=== PATIENT | male | born 1985 | race African-American/Black ===

== ENCOUNTER 2016-11-28 22:03 | Inpatient (IN) | payer OTHER ==
--- NOTE | ~2016-11-28 | DS ---
Discharge Summary [facility] [address] [place]. [address] NAME: TORITO HATCH) : 83 STATUS : DIS IN PAT#: [id number] AGE: 31 ADM/REG DATE : 11/28/16 MR#: [id number] REPORT SERV DATE: 12/13/16 DICTATED BY: DRAKE PEDRO JR. DATE: 12/12/16 REPORT STATUS : Draft TRANSCRIBED BY: FAIZA DATE: 12/12/16 Data Collection from hospitalization DISCHARGE DIAGNOSES: 1. Right pneumonia with empyema. 2. History of closed fracture of fifth metacarpal. 3. Tobacco use. CONSULTATIONS: None. PROCEDURES PERFORMED: 1. Therapeutic bronchoscopy, right thoracoscopy with complete decortication, and intercostal nerve block on 11/30/2016. 2. CT scan of the chest without contrast on 11/28/2016. MEDICATIONS: Levaquin 750 mg daily, Percocet 5/325 one to two tablets every four hours as needed, and MiraLAX powder one packet daily. CONDITION AT DISCHARGE: Stable. DISPOSITION: The patient was discharged home on a regular diet with activities as instructed. He would follow up with me three to four weeks following discharge. HOSPITAL COURSE: This is a 31-year-old man who had a nonproductive cough, shortness of breath, fevers, chills, and right pleuritic pain over the past four to five days as well as increasingly getting worse. He said the pain was constant and did not improve with over-the counter medication. He eventually presented to the emergency room at [facility] on 11/27/2016. Further workup revealed right pneumonia with pleural effusion and elevated white blood cell count. Blood cultures were positive for Strep pneumoniae. He was started on antibiotics and had a CT scan of the chest obtained, which showed moderate-sized loculated right effusion with right posterior basilar pneumonia and elevation of the right diaphragm. Because of this, we were asked to transfer him here for consideration of surgical decortication. He was transferred here and admitted for further evaluation and treatment. Upon admission, his white blood cell count was 11.8. He had been started on Levaquin and Zosyn. He was being held n.p.o. A CT scan of the chest without contrast was performed. On 11/30/2016, urine output was adequate. O2 saturation was 95% on room air. He was taken to the operating room where he underwent the above-mentioned procedure. He tolerated this well, and there were no complications. On postop day #1, he had decreased breath sounds in his lung bases, right greater than left. His abdomen remained soft, nontender, and nondistended. We encouraged him to increase his activity. Discharge planning was performed. On 12/02/2016, O2 saturation was 97% on room air. His chest tube was removed. Surgical cultures and blood cultures were negative to date. Discharge instructions were given. Due to his improved and stable condition, he was discharged home with the above- stated instructions. Information collected by: Delmi Paul Discharge Summary [address] [address] NAME: TORITO HATCHMaliaHUSSEIN) : 83 STATUS : DIS IN [facility]#: [id number] AGE: 31 ADM/REG DATE : 11/28/16 MR#: [id number] REPORT SERV DATE: 12/13/16 DICTATED BY: DRAKE PEDRO JR. DATE: 12/12/16 REPORT STATUS : Draft TRANSCRIBED BY: FAIZA DATE: 12/12/16 I submit the above information as my discharge summary. GABE/FAIZA Drake Pedro Jr., M.D. / [id number] CC: Drake Pedro Jr., M.D.
--- NOTE | ~2016-11-28 | HP ---
History And Physical [place] [id number] [facility] [place]. [address] NAME: TORITO HATCH) : [birth year] STATUS : ADM IN [facility]#: [id number] AGE: 31 ADM/REG DATE : 11/28/16 MR#: [id number] REPORT SERV DATE: 11/29/16 DICTATED BY: THOR LOZOYA DATE: 11/29/16 REPORT STATUS : Draft TRANSCRIBED BY: MODNeelima DATE: 11/29/16 DATE OF ADMISSION: 11/28/2016 REASON FOR ADMISSION: Right pneumonia with empyema. BRIEF HISTORY: A 31-year-old white male, who had a nonproductive cough, shortness of breath, fever, chills, and right pleuritic pain for the last 4-5 days and increasingly getting worse. He states the pain was constant and did not improve with [id number] medications. He eventually presented to the emergency room at [facility] on 11/27/2016 and upon further workup, was noted to have right pneumonia with pleural effusion and elevated white blood count. Blood cultures were also positive for strep pneumoniae. He was started on antibiotics and a CT of the chest was obtained, which showed a moderate size loculated right effusion with right posterior basilar pneumonia and elevation of the right hemidiaphragm. Because of this, we were asked to transfer him for consideration for a surgical decortication. PAST MEDICAL HISTORY: Significant for closed fracture of his 5th metacarpal. PAST SURGICAL HISTORY: Includes pins in his hips as a child in 1993. HOME MEDICATIONS: None. ALLERGIES: TO MEDICATIONS, NONE. SOCIAL HISTORY: The patient smokes roughly one pack per week and has done so since age 23. Denies alcohol use or drug use of any kind. He is single and lives with his children and works in [employer]. He lives in [place], [place]. FAMILY HISTORY: Positive for his mother having diabetes and his father dying at age 56 of liver disease. His siblings are healthy with no significant medical problems. REVIEW OF SYSTEMS: Significant for shortness of breath, fever, chills, pleuritic pain in the right chest. Otherwise, a complete 12-point review of systems was performed and all other systems negative except for the above-mentioned pertinent positives in the history of present illness. PHYSICAL EXAMINATION: GENERAL: A 31-year-old white male, alert, in no acute distress. Appearing his stated age. CONSTITUTIONAL: Afebrile, heart rate 75, 100% sat on room air, blood pressure 130/72. HEAD, EARS, EYES, NOSE, AND THROAT: Normocephalic, atraumatic. Pupils equal, round and reactive to light. Ears, nose, and throat without drainage, lesions, or exudates noted. NECK: Supple. No lymphadenopathy, JVD, or bruits. Trachea midline with no obvious goiter. CHEST: Symmetrical bilateral movement. No chest wall deformities noted. No axillary lymphadenopathy noted. CARDIOVASCULAR: Exam reveals regular rate and rhythm. S1, S2. No gallop, murmur, or rub. History And Physical [address] [place]. [address] NAME: TORITO HATCH(HUSSEIN) : 83 STATUS : ADM IN [facility]#: [id number] AGE: 31 ADM/REG DATE : 11/28/16 MR#: [id number] REPORT SERV DATE: 11/29/16 DICTATED BY: THOR LOZOYA DATE: 11/29/16 REPORT STATUS : Draft TRANSCRIBED BY: FAIZA DATE: 11/29/16 RESPIRATORY: With decreased breath sounds on the right chest. Left clear. No use of accessory muscles noted. GASTROINTESTINAL: Abdomen is soft, nontender, nondistended. Positive bowel sounds in all 4 quadrants. No hepatosplenomegaly noted. : The patient voids without difficulty, otherwise deferred. MUSCULOSKELETAL: Without obvious kyphosis or scoliosis noted. Normal range of motion in all 4 extremities. No obvious bony abnormalities. NEURO: All 12 cranial nerves intact. No focal neurologic deficits noted. The patient is alert and oriented x3. SKIN: Warm and dry with no breakdown or lesions, and normal turgor. EXTREMITIES: Without clubbing, cyanosis, or edema, and 3+ pulses bilaterally. PSYCH: Normal mood and affect, and pleasant. Answers all questions appropriately. HEMATOLOGIC/LYMPHATIC: Without any obvious supraclavicular, cervical, or axillary lymphadenopathy. There is no petechiae or ecchymosis either. DATA: CT of the chest performed on 11/28/2016 showing right loculated effusion moderate in size, flaring up to the lateral wall of the right chest. There is a consolidation of the posterior basilar segment the right lower lobe, consistent with pneumonia. There is also elevation of the right hemidiaphragm. Blood cultures x2 dated 11/27/2016, 2/2 positive for strep pneumonia. LABORATORY DATA: Dated 11/29/2016: Sodium 143, potassium 3.3, chloride 110, BUN 6, creatinine 0.93, glucose 104. White blood count 11.8, hemoglobin 12.1, hematocrit 35.0, platelet 206. PROBLEM LIST: 1. Loculated right pleural effusion, parapneumonic in nature. 2. Right lower lobe pneumonia, strep pneumoniae positive. 3. Bacteremia. 4. Elevated right hemidiaphragm. 5. Tobacco abuse. 6. Closed fracture of 5th metacarpal. 7. Hypokalemia. IMPRESSION AND PLAN: A 31-year-old white male with recent pneumonia and progressive symptoms prompting evaluation in the emergency room. He was noted to have consolidation in the right posterior lower lobe consistent with pneumonia and a loculated right effusion which is moderate in size. Blood cultures were positive for strep pneumoniae. He has been placed on Levaquin as well as Zosyn. He is afebrile currently, and his white blood count is mildly elevated. I discussed with him and his family the loculated nature of the pleural fluid and the need for decortication. He is currently n.p.o. They understand the risks and benefits of surgery, and are willing to proceed if felt necessary. We will plan to proceed later on this afternoon if at all possible. If it becomes unreasonably late, then we would let him eat and presume with surgery possibly tomorrow. History And Physical [address] [address] NAME: TORITO HATCH(HUSSEIN) : 83 STATUS : ADM IN PAT#: [id number] AGE: 31 ADM/REG DATE : 11/28/16 MR#: [id number] REPORT SERV DATE: 11/29/16 DICTATED BY: THOR LOZOYA DATE: 11/29/16 REPORT STATUS : Draft TRANSCRIBED BY: FAIZA DATE: 11/29/16 PABLO/FAIZA Thor Lozoya NP / [id number] CC: Jaspal Pedro Jr., M.D.
--- NOTE | ~2016-11-28 | OP ---
Record Of Operation [facility] [address] [place]. [address] NAME: TORITO HATCH) : [birth year] STATUS : ADM IN [facility]#: [id number] AGE: 31 ADM/REG DATE : 11/28/16 MR#: [id number] REPORT SERV DATE: 12/01/16 DICTATED BY: DRAKE PEDRO JR. DATE: 11/30/16 REPORT STATUS : Draft TRANSCRIBED BY: MODNeelima DATE: 11/30/16 DATE OF PROCEDURE: 11/30/2016 PREOPERATIVE DIAGNOSIS: Right pneumonia with empyema. POSTOPERATIVE DIAGNOSIS: Right pneumonia with empyema. OPERATION: Therapeutic bronchoscopy, right thoracoscopy with complete decortication, intercostal nerve block. SURGEON: Drake Pedro M.D. DRY PLACER MACHINE OPERATOR: Harry King. RESIDENT SURGEON: Dilshad Marroquin MD ANESTHESIA: General endotracheal. FINDINGS: The patient noted to have a loculated parapneumonic effusion with previous culture suggesting a strep infection. We were able get all the fluid removed and the gelatinous material and loculations broken up. The lung was able to be fully decorticated. There was good reexpansion of all three lobes of the lung. Final cultures are pending. DETAILS OF OPERATION: After adequate general anesthesia, the patient was intubated. Bronchoscopy was performed noting significant endobronchial secretions. These secretions were removed. We were able to then get a left-sided double-lumen endotracheal tube in place. There was no contraindications proceeding on with surgery. The patient was then positioned in the left lateral decubitus position. The right chest was prepped and draped in routine sterile fashion. A small incision made overlying the lower intercostal space. Through a single incision site, the above finding was noted. The fluid and gelatinous debris were then removed with the suction devices. The fluid was sent for cultures. A complete decortication was then required. We were able to get the fissures and all of the fluid and loculations broken up. The peel on the entire right lung was removed. Then chest was thoroughly irrigated with multiple liters of sterile water. Intercostal nerve block was performed. A 32-Com[place] chest tube was placed. The lung was then reinflated. The single trocar incision was closed with running Vicryl sutures. The skin was closed with running monofilament suture. A Dermabond dressing was applied. The procedure was terminated at this point. The patient tolerated the procedure well, returned back to recovery room in stable condition. WES/FAIZA Drake Pedro Jr., M.D. Record Of Operation [address] [address] NAME: TORITO HATCH(HUSSEIN) : 83 STATUS : ADM IN PAT#: [id number] AGE: 31 ADM/REG DATE : 11/28/16 MR#: [id number] REPORT SERV DATE: 12/01/16 DICTATED BY: DRAKE PEDRO JR. DATE: 11/30/16 REPORT STATUS : Draft TRANSCRIBED BY: FAIZA DATE: 11/30/16 / [id number] CC: Enriqueta Lopez Jr., M.D.
--- NOTE | ~2016-11-28 | DS ---
Discharge Summary [place] [address] [place]. [address] NAME: TORITO HATCH) : 83 STATUS : DIS IN PAT#: [id number] AGE: 31 ADM/REG DATE : 11/28/16 MR#: [id number] REPORT SERV DATE: 12/12/16 DICTATED BY: DRAKE PEDRO JR. DATE: 12/11/16 REPORT STATUS : Draft TRANSCRIBED BY: FAIZA DATE: 12/11/16 Data Collection from hospitalization DISCHARGE DIAGNOSES: 1. Right pneumonia with empyema. 2. History of closed fracture of fifth metacarpal. 3. Rare tobacco. CONSULTATIONS: None. PROCEDURES PERFORMED: 1. Therapeutic bronchoscopy, right thoracoscopy with complete decortication and intercostal nerve block, 11/30/2016. 2. CT scan of the chest without contrast, 11/28/2016. DISCHARGE MEDICATIONS: Levaquin 750 mg daily, Percocet 5/325 one to two tablets every four hours as needed, MiraLAX powder one packet daily. CONDITION AT DISCHARGE: Stable. DISPOSITION: The patient was discharged home on a regular diet with activities as instructed. He would follow up with me three to four weeks following discharge. HOSPITAL COURSE: DICTATION ENDS HERE Information collected by: Delmi Paul I submit the above information as my discharge summary. GABE/FAIZA Drake Pedro Jr., M.D. / [id number] CC: Drake Pedro Jr., M.D.
[2016-11-29 01:01] LABS: HEMOGLOBIN 12.1 g/dL (13.6-17.8); MEAN CORPUS HGB CONC 34.6 g/dL (32.0-36.0); MEAN CORPUSCULAR HEMOGLOB 27.3 pg (26.0-34.0); MEAN CORPUSCULAR VOLUME 78.8 fL (80-100); MEAN PLATELET VOLUME 11.1 fL (9.2-13.0); PLATELET COUNT 206 10/3/uL (150-400); RBC DISTRIBUTION WIDTH 14.9 % (12.0-16.0); RED CELL COUNT 4.44 10/6/uL (4.7-6.1); WHITE BLOOD CELLS 11.8 10/3/uL (4.5-10.5)
[2016-11-29 01:07] LABS: BUN (BLOOD UREA NITROGEN) 8 MG/DL (6-23); CHLORIDE, SERUM 107 MMOL/L (96-112); CO2 (CARBON DIOXIDE) 25 MMOL/L (24-34); CREATININE 1.11 MG/DL (0.70-1.30); GFR AFRICAN AMERICAN 101 ML/MIN (>=60); GFR NON AFRICAN AMERICAN 87 ML/MIN (>=60); GLUCOSE, SERUM 106 MG/DL (60-99); SODIUM, SERUM 142 MMOL/L (135-148)
[2016-11-29 01:09] LABS: MANUAL DIFF YES %
[2016-11-29 01:11] LABS: POTASSIUM, SERUM 2.9 MMOL/L (3.5-5.3)
[2016-11-29 01:16] LABS: BAND NEUTROPHILS 7 %; EOSINOPHILS 2 %; EOSINOPHILS ABSOLUTE (CALC) 0.24 10/3/uL (0.0-0.53); IMMATURE GRANS ABSOLUTE (CALC) 0.59 10/3/uL (0.0-0.11); LYMPHOCYTES 16 %; LYMPHOCYTES ABSOLUTE (CALC) 1.89 10/3/uL (0.67-4.30); METAMYELOCYTES 3 %; MONOCYTES 10 %; MONOCYTES ABSOLUTE (CALC) 1.18 10/3/uL (0.21-1.20); MYELOCYTES 2 %; NEUTROPHILS ABSOLUTE (CALC) 7.91 10/3/uL (2.02-8.40); SEGMENTED NEUTROPHIL (0) 60 %; TOTAL NUCLEATED CELLS 100
[2016-11-29 01:17] LABS: BURR CELLS 1+ (3-10/OIF) (0-2/OIF); GIANT PLATELET RARE; PLATELET ESTIMATE ADQ (ADEQUATE)
[2016-11-29 01:18] LABS: VACUOLATED NEUTROPHILES OCC
[2016-11-29 05:32] LABS: BUN (BLOOD UREA NITROGEN) 6 MG/DL (6-23); CALCIUM, SERUM 8.2 MG/DL (8.5-10.4); CHLORIDE, SERUM 110 MMOL/L (96-112); CO2 (CARBON DIOXIDE) 23 MMOL/L (24-34); CREATININE 0.93 MG/DL (0.70-1.30); GFR AFRICAN AMERICAN 125 ML/MIN (>=60); GFR NON AFRICAN AMERICAN 108 ML/MIN (>=60); GLUCOSE, SERUM 104 MG/DL (60-99); POTASSIUM, SERUM 3.3 MMOL/L (3.5-5.3); SODIUM, SERUM 143 MMOL/L (135-148)
[2016-11-30 05:59] LABS: ASCORBIC ACID (UR NOT ORDER) NEG (NEG); BILIRUBIN, URINE NEGATIVE (NEG); KETONE, URINE NEGATIVE (NEG); LEUKOCYTE ESTERASE(NOT OR NEG (NEG); WBC (NOT ORDERED) (RFLEX) 3 (0-5)
[2016-11-30 06:24] LABS: HEMATOCRIT 37.2 % (40.0-51.0); HEMOGLOBIN 12.8 g/dL (13.6-17.8); MEAN CORPUS HGB CONC 34.4 g/dL (32.0-36.0); MEAN CORPUSCULAR HEMOGLOB 27.1 pg (26.0-34.0); MEAN CORPUSCULAR VOLUME 78.8 fL (80-100); MEAN PLATELET VOLUME 9.8 fL (9.2-13.0); RBC DISTRIBUTION WIDTH 14.8 % (12.0-16.0); RED CELL COUNT 4.72 10/6/uL (4.7-6.1); WHITE BLOOD CELLS 11.4 10/3/uL (4.5-10.5)
[2016-11-30 06:28] LABS: MANUAL DIFF YES %; PLATELET COUNT 284 10/3/uL (150-400)
[2016-11-30 06:34] LABS: INTERNATIONAL NORMAL RATI 1.2 UNITS (-); PROTIME (NOT ORD) 15.4 SEC (12.0-14.5)
[2016-11-30 06:47] LABS: A/G RATIO 0.4 (0.7-1.9); ALBUMIN 2.1 G/DL (3.5-5.0); ALKALINE PHOSPHATASE 116 U/L (45-117); BUN (BLOOD UREA NITROGEN) 7 MG/DL (6-23); CALCIUM, SERUM 8.3 MG/DL (8.5-10.4); CHLORIDE, SERUM 108 MMOL/L (96-112); CO2 (CARBON DIOXIDE) 24 MMOL/L (24-34); CREATININE 0.88 MG/DL (0.70-1.30); GFR AFRICAN AMERICAN 132 ML/MIN (>=60); GFR NON AFRICAN AMERICAN 114 ML/MIN (>=60); GLUCOSE, SERUM 92 MG/DL (60-99); POTASSIUM, SERUM 3.7 MMOL/L (3.5-5.3); SGOT(AST) 37 U/L (5-40); SGPT(ALT) 52 U/L (5-65); SODIUM, SERUM 142 MMOL/L (135-148); TOTAL BILIRUBIN 0.4 MG/DL (0-1.2); TOTAL PROTEIN 7.1 G/DL (6.0-8.5)
[2016-11-30 07:10] LABS: BAND NEUTROPHILS 4 %; EOSINOPHILS 5 %; EOSINOPHILS ABSOLUTE (CALC) 0.57 10/3/uL (0.0-0.53); LYMPHOCYTES 7 %; MONOCYTES 14 %; NEUTROPHILS ABSOLUTE (CALC) 8.44 10/3/uL (2.02-8.40); PLATELET ESTIMATE ADQ (ADEQUATE); RBC MORPHOLOGY NORM (NORMAL); SEGMENTED NEUTROPHIL (0) 70 %; TOTAL NUCLEATED CELLS 100
[2016-11-30 19:26] LABS: BASOPHILS 0.7 %; EOSINOPHILS 1.1 %; EOSINOPHILS ABSOLUTE 0.16 10/3/uL (0.0-0.53); HEMATOCRIT 40.5 % (40.0-51.0); HEMOGLOBIN 13.6 g/dL (13.6-17.8); IMMATURE GRANULOCYTES 7.9 %; IMMATURE GRANULOCYTES ABSOLUTE 1.19 10/3/uL (0.0-0.11); LYMPHOCYTES 9.6 %; LYMPHOCYTES ABSOLUTE 1.44 10/3/uL (0.67-4.30); MEAN CORPUS HGB CONC 33.6 g/dL (32.0-36.0); MEAN CORPUSCULAR HEMOGLOB 26.8 pg (26.0-34.0); MEAN CORPUSCULAR VOLUME 79.9 fL (80-100); MEAN PLATELET VOLUME 10.1 fL (9.2-13.0); MONOCYTES 5.3 %; MONOCYTES ABSOLUTE 0.79 10/3/uL (0.21-1.20); NEUTROPHILS 75.4 %; NEUTROPHILS ABSOLUTE 11.35 10/3/uL (2.02-8.40); PLATELET COUNT 291 10/3/uL (150-400); RED CELL COUNT 5.07 10/6/uL (4.7-6.1)
[2016-11-30 19:27] LABS: MANUAL DIFF NO %
[2016-11-30 19:41] LABS: BUN (BLOOD UREA NITROGEN) 8 MG/DL (6-23); CALCIUM, SERUM 8.3 MG/DL (8.5-10.4); CHLORIDE, SERUM 106 MMOL/L (96-112); CO2 (CARBON DIOXIDE) 26 MMOL/L (24-34); CREATININE 1.07 MG/DL (0.70-1.30); GFR AFRICAN AMERICAN 106 ML/MIN (>=60); GFR NON AFRICAN AMERICAN 91 ML/MIN (>=60); GLUCOSE, SERUM 87 MG/DL (60-99); POTASSIUM, SERUM 4.4 MMOL/L (3.5-5.3); SODIUM, SERUM 140 MMOL/L (135-148)
[2016-11-30 19:52] LABS: BAND NEUTROPHILS 7 %; EOSINOPHILS 1 %; EOSINOPHILS ABSOLUTE (CALC) 0.15 10/3/uL (0.0-0.53); LYMPHOCYTES 12 %; METAMYELOCYTES 2 %; NEUTROPHILS ABSOLUTE (CALC) 12.75 10/3/uL (2.02-8.40); SEGMENTED NEUTROPHIL (0) 78 %; TOTAL NUCLEATED CELLS 100
[2016-11-30 19:53] LABS: PATH REVIEW YES; PLATELET ESTIMATE ADQ (ADEQUATE)
[2016-12-01 06:15] LABS: HEMATOCRIT 39.4 % (40.0-51.0); HEMOGLOBIN 13.2 g/dL (13.6-17.8); MEAN CORPUS HGB CONC 33.5 g/dL (32.0-36.0); MEAN CORPUSCULAR HEMOGLOB 26.5 pg (26.0-34.0); MEAN CORPUSCULAR VOLUME 79.1 fL (80-100); MEAN PLATELET VOLUME 10.3 fL (9.2-13.0); PLATELET COUNT 361 10/3/uL (150-400); RBC DISTRIBUTION WIDTH 15.1 % (12.0-16.0); RED CELL COUNT 4.98 10/6/uL (4.7-6.1)
[2016-12-01 06:21] LABS: MANUAL DIFF YES %; WHITE BLOOD CELLS 23.7 10/3/uL (4.5-10.5)
[2016-12-01 06:27] LABS: BUN (BLOOD UREA NITROGEN) 10 MG/DL (6-23); CALCIUM, SERUM 8.2 MG/DL (8.5-10.4); CHLORIDE, SERUM 105 MMOL/L (96-112); CO2 (CARBON DIOXIDE) 25 MMOL/L (24-34); CREATININE 0.95 MG/DL (0.70-1.30); GFR AFRICAN AMERICAN 122 ML/MIN (>=60); GFR NON AFRICAN AMERICAN 105 ML/MIN (>=60); GLUCOSE, SERUM 154 MG/DL (60-99); POTASSIUM, SERUM 4.4 MMOL/L (3.5-5.3); SODIUM, SERUM 138 MMOL/L (135-148)
[2016-12-01 06:38] LABS: BAND NEUTROPHILS 14 %; IMMATURE GRANS ABSOLUTE (CALC) 0.47 10/3/uL (0.0-0.11); LYMPHOCYTES 4 %; LYMPHOCYTES ABSOLUTE (CALC) 0.95 10/3/uL (0.67-4.30); METAMYELOCYTES 2 %; MONOCYTES 3 %; MONOCYTES ABSOLUTE (CALC) 0.71 10/3/uL (0.21-1.20); NEUTROPHILS ABSOLUTE (CALC) 21.57 10/3/uL (2.02-8.40); PLATELET ESTIMATE ADQ (ADEQUATE); SEGMENTED NEUTROPHIL (0) 77 %; TOTAL NUCLEATED CELLS 100
[2016-12-01 06:39] LABS: POLYCHROMASIA 1+ (2-5/OIF) (0-1/OIF); TOXIC GRANULATION 1+; VACUOLATED NEUTROPHILES OCC
[2016-12-02] MEDS ORDERED: MIRALAX POWDER1 PKT PO (10:00)
[2016-12-02] MEDS ORDERED: LEVAQUIN750 MG PO (10:00)
[2016-12-02] MEDS ORDERED: PCET PO (10:01)
== END 2016-12-02 10:50 | disposition home or self-care (01) | DRG 163 ==
LOC: 5NO 22:03
PROVIDERS: Nurse Practitioner Acute Care; Thoracic Surgery (Cardiothoracic Vascular Surgery)
PROC: 3E0T3BZ Introduction of Anesthetic Agent into Peripheral Nerves and Plexi, Percutaneous Approach (ICD-10-PCS; 2016-11-30)
PROC: 0BDN4ZZ Extraction of Right Pleura, Percutaneous Endoscopic Approach (ICD-10-PCS; principal; 2016-11-30 16:45)
PROC: 0BJ08ZZ Inspection of Tracheobronchial Tree, Via Natural or Artificial Opening Endoscopic (ICD-10-PCS; 2016-11-30 16:45)
DX: J15.4 Pneumonia due to other streptococci (principal); J86.9 Pyothorax without fistula; J90 Pleural effusion, not elsewhere classified; F17.210 Nicotine dependence, cigarettes, uncomplicated; E87.6 Hypokalemia
CPT/HCPCS: 36415; 71010; 71020; 71250; 80048; 80053; 81001; 82962; 85025; 85610; 86850; 86900; 86901; 86920; 87015; 87040; 87070; 87075; 87102; 87116; 87205; 93005; 94640; A9270-GY; J1170; J1956; J2250; J2370; J2405; J2543; J2710; J2795; J3010

== ENCOUNTER 2017-02-05 10:13 | Emergency (ER) | payer OTHER ==
[2017-02-05 10:08] LABS: BASOPHILS 0 %; EOSINOPHILS 0.3 %; EOSINOPHILS ABSOLUTE 0.02 10/3/uL (0.0-0.53); IMMATURE GRANULOCYTES 0.3 %; IMMATURE GRANULOCYTES ABSOLUTE 0.02 10/3/uL (0.0-0.11); LYMPHOCYTES 10.3 %; LYMPHOCYTES ABSOLUTE 0.76 10/3/uL (0.67-4.30); MEAN CORPUS HGB CONC 32.7 g/dL (32.0-36.0); MEAN CORPUSCULAR HEMOGLOB 27.1 pg (26.0-34.0); MONOCYTES ABSOLUTE 0.37 10/3/uL (0.21-1.20); NEUTROPHILS 84.1 %; NEUTROPHILS ABSOLUTE 6.18 10/3/uL (2.02-8.40); RBC DISTRIBUTION WIDTH 16.7 % (12.0-16.0); RED CELL COUNT 5.54 10/6/uL (4.7-6.1)
[2017-02-05 10:10] LABS: ER CBC TAT 0 Hrs 08 MinsNP; HEMATOCRIT 45.9 % (40.0-51.0); MANUAL DIFF NO %; MEAN CORPUSCULAR VOLUME 82.9 fL (80-100); PLATELET COUNT 127 10/3/uL (150-400); WHITE BLOOD CELLS 7.4 10/3/uL (4.5-10.5)
[~2017-02-05 10:13] MED LIST: LEVAQUIN750 MG PO; MIRALAX POWDER1 PKT PO; PCET PO
[2017-02-05 12:38] LABS: BUN (BLOOD UREA NITROGEN) 13 MG/DL (6-23); CHLORIDE, SERUM 106 MMOL/L (96-112); CO2 (CARBON DIOXIDE) 25 MMOL/L (24-34); CREATININE 1.03 MG/DL (0.70-1.30); GFR AFRICAN AMERICAN 111 ML/MIN (>=60); GFR NON AFRICAN AMERICAN 96 ML/MIN (>=60); POTASSIUM, SERUM 3.9 MMOL/L (3.5-5.3); SGOT(AST) 22 U/L (5-40); SGPT(ALT) 19 U/L (5-65); SODIUM, SERUM 137 MMOL/L (135-148); TOTAL BILIRUBIN 0.5 MG/DL (0-1.2); TOTAL PROTEIN 7.6 G/DL (6.0-8.5)
[2017-02-05 12:39] LABS: A/G RATIO 0.9 (0.7-1.9); ALBUMIN 3.6 G/DL (3.5-5.0); ALKALINE PHOSPHATASE 78 U/L (45-117); CALCIUM, SERUM 9.2 MG/DL (8.5-10.4); GLUCOSE, SERUM 86 MG/DL (60-99)
== END 2017-02-05 13:55 | disposition home or self-care (01) ==
LOC: ER 10:13
PROVIDERS: Physician Assistant
DX: R07.89 Other chest pain (principal); Z79.2 Long term (current) use of antibiotics; Z79.891 Long term (current) use of opiate analgesic; Z79.899 Other long term (current) drug therapy
CPT/HCPCS: 71020; 80053; 85025; 93005; 96374; 99285; J1885